=== PATIENT | male | born 1960 | race Caucasian/White ===

== ENCOUNTER 2023-08-15 14:55 | Emergency (ER) | payer OTHER, SELFPAY ==
--- NOTE | ~2023-08-15 | CT_ITS ---
EXAMINATION: CT abdomen pelvis w con DATE: 08/15/2023 16:39 INDICATION: Hemoptysis for 3 days TECHNIQUE: Computed tomography (CT) of the abdomen and pelvis was performed with 100 cc Omnipaque 350 intravenous contrast. The dose-length product was 817.96 mGy-cm. Automated exposure control and iter ative reconstruction technique were employed. COMPARISON: None. FINDINGS: Small hiatal hernia. There is significant thickening of the distal esophagus, consistent wi th esophagitis. Small amount of periesophageal fluid, possibly inflammatory. Fatty infiltration of the liver. There are gallstones. The spleen, pancreas, left adrenal gland and l eft kidney are unremarkable. There is 2 mm nonobstructing right renal stone. Small low-density lesion in the right kidney, too small to characterize, although likely benign. Bladder is unremarkable. No abnormal pelvic masses or fluid collections. Nonobstructive bowel gas pattern. Colonic diverticulosis without evidence for diverticulitis. 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 Severe lumbar spondylosis. IMPRESSION: 1. Severe abnormal mural thickening of the distal esophagus, consistent with esophagitis. Small volum e of periesophageal fluid near the GE junction, possibly inflammatory. Recommend GI consultation. 2: Cholelithiasis. 3: Nonobstructing right nephrolithiasis. Reviewed, dictated and finalized at location B. IMPRESSION: 1. Severe abnormal mural thickening of the distal esophagus, consistent with es ophagitis. Small volume of periesophageal fluid near the GE junction, possibly inflammatory. Recommend GI consultation. 2: Cholelithiasis. 3: Nonobstructing right nephrolithiasis.
[2023-08-15 14:55] VITALS: BP 172/94; PULSE 92; RESP 16; TEMP 37.1; O2SAT 97
[2023-08-15] MEDS: ONDANSETRON INJ 4 MG/2 ML VIAL IV PUSH (15:27)
[2023-08-15] MEDS: SODIUM CHLORIDE 0.9% IV 1,000 ML 999 ML IV CONT (15:27)
[2023-08-15] MEDS: PANTOPRAZOLE SODIUM IV 40 MG VIAL 80 MG IV PUSH (15:28)
[2023-08-15 15:53] LABS: Basophils Absolute Auto 0.02 K/mm3 (0.00-0.10); Basophils Percent Auto 0.1 % (0.0-1.0); Eosinophils Absolute Auto 0.01 K/mm3 (0.02-0.50); Eosinophils Percent Auto 0.1 % (1.0-6.0); Hematocrit 43.1 % (40.0-54.0); Hemoglobin 13.8 g/dL (14.0-18.0); Immature Granulocyte Absolute 0.09 K/mm3 (0.00-0.00); Immature Granulocyte Percent A 0.5 % (0.0-0.0); Lymphocytes Absolute Auto 1.13 K/mm3 (1.10-4.50); Lymphocytes Percent Auto 6.7 % (18.0-42.0); Mean Corpuscular Hemoglobin 28.9 pg (27.0-31.0); Mean Corpuscular Volume 90.2 fL (78.0-102.0); Mean Platelet Volume 9.7 fl (8.7-11.0); Monocytes Absolute Auto 1.36 K/mm3 (0.10-0.90); Monocytes Percent Auto 8.1 % (2.0-11.0); Neutrophils Absolute Auto 14.24 K/mm3 (1.70-7.20); Neutrophils Percent Auto 84.5 % (50.0-70.0); Platelet Count Result 377 K/mm3 (150-420); Red Blood Count 4.78 M/mm3 (4.70-6.10); Red Cell Distribution Width 12.5 % (11.6-14.4); White Blood Count 16.9 K/mm3 (4.8-10.8)
[2023-08-15 16:05] LABS: Alanine Aminotransferase 30 U/L (16-63); Albumin Level 3.7 g/dL (3.4-5.0); Alkaline Phosphatase 75 U/L (46-116); Ammonia 42 umol/L (11-32); Anion Gap 10 mmol/L (4-12); Aspartate Amino Transferase 11 U/L (15-37); Bilirubin,Total 0.5 mg/dL (0.00-1.00); Blood Urea Nitrogen 29 mg/dL (7-18); Calcium 8.8 mg/dL (8.5-10.1); Carbon Dioxide 30 mmol/L (21-32); Chloride 102 mmol/L (98-108); Estimated CRCL calculation 86 ml/min; Estimated Glomerular Filt Rate > 60; Glucose 135 mg/dL (70-99); Lipase 17 U/L (16-77); Magnesium 1.9 mg/dL (1.8-2.4); Osmolality Calculated 301 mOsm/kg (285-295); Partial Thromboplastin Time 23.9 Sec (23.9-30.70); Potassium 3.6 mmol/L (3.5-5.1); Prothrombin Time 10.6 Seconds (9.50-12.1); Sodium 142 mmol/L (136-145); Total Protein 7.6 g/dL (6.4-8.2)
[2023-08-15 16:11] LABS: Lactic Acid Reflex 1.2 mmol/L (0.4-2.0)
[2023-08-15 16:16] LABS: CRP 0.5 mg/dL (0.0-0.9)
[2023-08-15 16:25] VITALS: BP 159/87; PULSE 88; RESP 20; O2SAT 98
[2023-08-15 16:49] LABS: Gastric Negative Control Negative; Gastric Positive Control Positive; Occult Blood Gastric Fluid Positive; pH Gastric Fluid 6 (1-8)
--- NOTE | 2023-08-15 17:13 | ED.GENADULT ---
HPI - General Adult General Chief complaint: Nausea/Vomiting/Diarrhea Stated complaint: nausea, vomiting Time Seen by Provider: 08/15/23 15:03 Source: patient and family Mode of arrival: ambulatory Limitations: no limitations History of Present Illness HPI narrative: this is a 63-year-old male that presents with some epigastric burning and epigastric tenderness and had an episode of emesis with with mild brown vomitus currently has resolved patient with some no diarrhea or constipation, no chest pain no shortness of breath no dysuria. Onset (ago): hour(s) Severity: mild Quality: burning Pain Consistency: now resolved Related Data Allergies Allergy/AdvReac Type Severity Reaction Status Date / Time No Known Allergies Allergy Verified 08/15/23 15:07 Review of Systems Review of Systems: All systems reviewed & are unremarkable except as noted in HPI and below PMFSH Past Medical History Medical History Patient denies medical problems Exam Const: General: healthy appearing Nutritional Appearance: well nourished Orientation/consciousness: patient oriented x3 Limitations: no limitations HENMT: Head: normal to inspection Eyes: Conjunctivae: conjunctivae normal Chest: Chest palpation & inspection: normal inspection of the chest Resp: Effort & Inspection: normal respiratory effort Auscultation: clear to auscultation bilaterally Cardio: Rate: regular rate Rhythm: regular rhythm GI: GI Palp: Yes Soft to palpation and Yes Tenderness to palpation present (GI) ( epigastric tenderness) : General: Yes bladder normal to palpation Back/Spine/Pelvis: Back: no CVA tenderness Skin: General skin exam: normal color Rashes: no rashes Wounds: no wounds Course Course Emergency Course: patient had an episode of small emesis was gastroccult was positive currently no overt vomiting with no overt GI bleeding. Patient received IV Protonix and IV Zofran, labs stable H&H is within normal range. CT scan obtained and reviewed shows that there is esophagitis and needs a GI consultation. Vitals are stable patient states that he feels much better and advised to follow-up with his primary. Vital Signs Vital signs: Vital Signs Temperature 37.1 C 08/15/23 14:55 Pulse Rate 92 08/15/23 14:55 Respiratory Rate 16 08/15/23 14:55 Blood Pressure 172/94 H 08/15/23 14:55 Pulse Oximetry 97 08/15/23 14:55 Oxygen Delivery Room Air 08/15/23 14:55 Temperature 37.1 C 08/15/23 14:55 Pulse Rate 88 08/15/23 16:25 Respiratory Rate 20 08/15/23 16:25 Blood Pressure 159/87 H 08/15/23 16:25 Pulse Oximetry 98 08/15/23 16:25 Oxygen Delivery Room Air 08/15/23 16:25 Medical Decision Making Vital Signs Vital Signs: Vital Signs Temperature 37.1 C 08/15/23 14:55 Pulse Rate 92 08/15/23 14:55 Respiratory Rate 16 08/15/23 14:55 Blood Pressure 172/94 H 08/15/23 14:55 Pulse Oximetry 97 08/15/23 14:55 Oxygen Delivery Room Air 08/15/23 14:55 Temperature 37.1 C 08/15/23 14:55 Pulse Rate 88 08/15/23 16:25 Respiratory Rate 20 08/15/23 16:25 Blood Pressure 159/87 H 08/15/23 16:25 Pulse Oximetry 98 08/15/23 16:25 Oxygen Delivery Room Air 08/15/23 16:25 Lab Data 08/15/23 15:30 08/15/23 15:30 Labs: Lab Results 08/15/23 08/15/23 Range/Units 15:30 16:36 WBC 16.9 H (4.8-10.8) K/mm3 RBC 4.78 (4.70-6.10) M/mm3 Hgb 13.8 L (14.0-18.0) g/dL Hct 43.1 (40.0-54.0) % MCV 90.2 (78.0-102.0) fL MCH 28.9 (27.0-31.0) pg MCHC 32.0 (32-36) g/dL RDW 12.5 (11.6-14.4) % Plt Count 377 (150-420) K/mm3 MPV 9.7 (8.7-11.0) fl Immature Gran % (Auto) 0.5 H (0.0-0.0) % Neut % (Auto) 84.5 H (50.0-70.0) % Lymph % (Auto) 6.7 L (18.0-42.0) % [place] % (Auto) 8.1 (2.0-11.0) % Eos % (Auto) 0.1 L (1.0-6.0) % Baso % (Auto) 0.1 (0.0-1.0) % Lymph
[2023-08-15 17:31] VITALS: BP 145/84; PULSE 85; RESP 20; TEMP 36.6; O2SAT 98
== END 2023-08-15 17:31 | disposition home or self-care (01) ==
PROVIDERS: Emergency Provider Emergency Medicine
DX: K20.90 Esophagitis, unspecified without bleeding (principal)
CPT/HCPCS: 36415; 74177; 80053; 82140; 82271; 83605; 83690; 83735; 83986; 85025; 85610; 85730; 86140; 96361; 96374; 96375; 99284; C9113; J2405; J7030; Q9967

== ENCOUNTER 2024-02-15 20:01 | Emergency (ER) | payer OTHER, SELFPAY ==
[2024-02-15] VITALS (21 sets, daily range): BP systolic 121–152; BP diastolic 58–88; PULSE 93–123; RESP 13–38; TEMP 36.6; O2SAT 80–97
--- NOTE | ~2024-02-15 | CT_ITS ---
EXAMINATION: CT chest abdomen pelvis w con DATE: 02/15/2024 21:42 INDICATION: Upper abdominal pain. Anterior chest pain. TECHNIQUE: Computed tomography (CT) of the chest, abdomen, and pelvis was performed with 100 mL Omnip aque 350 intravenous contrast. Automated exposure control and iterative reconstruction technique were employed. The dose-length product was 890.79 mGy-cm. COMPARISON: CT abdomen and pelvis 08/15/2023 FINDINGS: CHEST CT: There are small pleural effusions. There are airspace opacities in right lower lobe. The heart size i s normal. No pericardial effusion. There is pneumomediastinum extending into the neck. There is wall thickening of the esophagus, consistent with esophagitis. There is tear of the distal esophagus. Ther e is a small volume of fluid in the mediastinum. There is severe thoracic spondylosis. ABDOMEN/PELVIS CT: The liver and spleen are normal. There are gallstones in the gallbladder, which is normal in size. Th e pancreas and left adrenal gland are normal. There is a 2.1 cm mass in right adrenal gland measuring low attenuation, consistent with an adenoma. There is a 5 mm cyst in right kidney. Left kidney is no rmal. There is a left inguinal hernia containing fat. There is diverticulosis of the colon without ev idence of diverticulitis. There are no dilated loops of bowel. The appendix is normal. There is calci fied atherosclerosis of the aorta and many of the other arteries. There are no pathologically enlarge d lymph nodes. There is no free intraperitoneal fluid. There is severe lumbar spondylosis. IMPRESSION: 1. Esophagitis with tear of the distal esophagus with pneumomediastinum and small volume of free medi astinal fluid. 2. Small loculated right pleural effusion. Small left pleural effusion. Reviewed, dictated and finalized at location A. IMPRESSION: 1. Esophagitis with tear of the distal esophagus with pneumomediastinum and sma ll volume of free mediastinal fluid. 2. Small loculated right pleural effusion. Small left pleural effusion.
--- NOTE | 2024-02-15 20:06 | ECG_ITS ---
Test Date: 2024-02-15 20:14:22 Measurements Intervals [place] Rate: 98 P: 53 HI: 152 QRS: -16 QRSD: 111 T: 57 QT: 354 QTc: 453 Interpretive Statements SINUS RHYTHM MODERATE INTRAVENTRICULAR CONDUCTION DELAY [110+ ms QRS DURATION] NONSPECIFIC ST ABNORMALITY ABNORMAL ECG No previous ECG available for comparison Electronically Signed On 02-16-2024 13:15:00 CDT by Oli Dickens M.D.
[2024-02-15] MEDS: MORPHINE SULFATE (*CRX) 4 MG/ML INJ IV PUSH (20:30)
[2024-02-15] MEDS: ONDANSETRON INJ 4 MG/2 ML VIAL IV PUSH (20:31)
[2024-02-15 20:32] LABS: Basophils Absolute Auto 0.04 K/mm3 (0.00-0.10); Basophils Percent Auto 0.3 % (0.0-1.0); Eosinophils Absolute Auto 0.02 K/mm3 (0.02-0.50); Eosinophils Percent Auto 0.1 % (1.0-6.0); Hematocrit 48.9 % (40.0-54.0); Hemoglobin 16.2 g/dL (14.0-18.0); Immature Granulocyte Absolute 0.09 K/mm3 (0.00-0.00); Immature Granulocyte Percent A 0.6 % (0.0-0.0); Lymphocytes Absolute Auto 1.72 K/mm3 (1.10-4.50); Lymphocytes Percent Auto 11.8 % (18.0-42.0); Mean Corpuscular HGB Conc 33.1 g/dL (32-36); Mean Corpuscular Volume 87.6 fL (78.0-102.0); Mean Platelet Volume 10.1 fl (8.7-11.0); Monocytes Absolute Auto 1.18 K/mm3 (0.10-0.90); Monocytes Percent Auto 8.1 % (2.0-11.0); Neutrophils Absolute Auto 11.48 K/mm3 (1.70-7.20); Neutrophils Percent Auto 79.1 % (50.0-70.0); Platelet Count Result 421 K/mm3 (150-420); Red Blood Count 5.58 M/mm3 (4.70-6.10); White Blood Count 14.5 K/mm3 (4.8-10.8)
[2024-02-15] MEDS: SODIUM CHLORIDE 0.9% IV 1,000 ML 999 ML IV CONT (20:32)
[2024-02-15] MEDS: PANTOPRAZOLE SODIUM IV 40 MG VIAL IV PUSH (20:36)
[2024-02-15 20:46] LABS: Alanine Aminotransferase 16 U/L (16-63); Albumin Level 3.9 g/dL (3.4-5.0); Alkaline Phosphatase 101 U/L (46-116); Anion Gap 12 mmol/L (4-12); Aspartate Amino Transferase < 10 U/L (15-37); Bilirubin,Total 0.7 mg/dL (0.00-1.00); Blood Urea Nitrogen 16 mg/dL (7-18); Calcium 9.3 mg/dL (8.5-10.1); Carbon Dioxide 27 mmol/L (21-32); Chloride 102 mmol/L (98-108); Estimated Glomerular Filt Rate > 60; Glucose 146 mg/dL (70-99); Lactic Acid Reflex 1.9 mmol/L (0.4-2.0); Lipase 14 U/L (16-77); Osmolality Calculated 296 mOsm/kg (285-295); Potassium 4.1 mmol/L (3.5-5.1); Sodium 141 mmol/L (136-145); Total Protein 8.2 g/dL (6.4-8.2); Troponin I 5.9 ng/L (0.00-60.4)
[2024-02-15] MEDS: HYDROmorphone HCL INJ (*CRX) 2 MG/ML VIAL 1 MG IV PUSH ×2 (21:15→22:42)
[2024-02-15 21:16] LABS: Partial Thromboplastin Time 25.3 Sec (23.9-30.70); Prothrombin Time 10.8 Seconds (9.50-12.1)
--- NOTE | 2024-02-15 21:59 | ED.ABDPAIN ---
HPI - Abdominal Pain General Chief Complaint: Abdominal Pain Stated Complaint: abd pain Time Seen by Provider: 02/15/24 20:03 Source: patient and family Limitations: no limitations History of Present Illness HPI narrative: This is a 63-year-old male with a history of esophagitis, has been having epigastric abdominal discomfort the last 3 days intensified over the last few hours with no nausea vomiting no fever chills no chest pain or pressure no shortness of breath no diarrhea constipation. MD elicited complaint: abdominal pain Onset (ago): hour(s) Pain Consistency: constant Location: epigastric Severity: severe Pain scale (0-10): 10 Quality: burning Related Data Home Medications Medication Instructions Recorded Confirmed Zantac 1 tablet PO DAILY PRN Acid Reflux 02/15/24 02/15/24 Allergies Allergy/AdvReac Type Severity Reaction Status Date / Time No Known Allergies Allergy Verified 02/15/24 22:52 Review of Systems Review of Systems: All systems reviewed & are unremarkable except as noted in HPI and below PMFSH Past Medical History Medical History Esophagitis Smoking history Surgical History Surgical History Hx of inguinal hernia surgery as an adolescent per pt, R inguinal - no complications since Family History Family History Mother Diabetes mellitus Father Black lung disease Emphysema lung Sibling Metastatic cancer Social History Social History Smoking packs per day: 0.5 Smoking cigarettes per day: 10.0 Years smoked: 47 Smoking pack-years: 23.50 Smoking status: Current every day smoker Tobacco type: cigarettes Alcohol intake: never Substance use: never Exam Const: General: no acute distress Nutritional Appearance: well nourished Orientation/consciousness: patient oriented x3 Limitations: no limitations HENMT: Head: normal to inspection Eyes: Conjunctivae: conjunctivae normal Neck: Neck: normal visual inspection, no lymphadenopathy and no meningeal signs Chest: Chest palpation & inspection: normal inspection of the chest Resp: Effort & Inspection: normal respiratory effort Auscultation: clear to auscultation bilaterally Cardio: Rate: regular rate Rhythm: regular rhythm GI: GI Palp: Yes Soft to palpation and Yes Tenderness to palpation present (GI) Auscultation: normal bowel sounds : General: Yes bladder normal to palpation Skin: General skin exam: normal color Rashes: no rashes Wounds: no wounds Neuro: General: patient oriented x3 and moves all extremities Extrem: General: normal to inspection Course Course Emergency Course: Patient with abdominal pain received IV Protonix as well as morphine for pain control and a dose of 1mg Dilaudid. Patient had blood work which was unremarkable lipase is 14 troponin is within normal range. Patient had an EKG which shows normal sinus rhythm. Vital Signs Vital signs: Vital Signs Temperature 36.6 C 02/15/24 20:01 Pulse Rate 93 02/15/24 20:01 Respiratory Rate 20 02/15/24 20:01 Blood Pressure 144/71 H 02/15/24 20:01 Pulse Oximetry 97 02/15/24 20:01 Oxygen Delivery Room Air 02/15/24 20:01 Temperature 36.6 C 02/15/24 20:01 Pulse Rate 105 H 02/16/24 00:20 Respiratory Rate 14 02/16/24 00:20 Blood Pressure 124/83 02/16/24 00:20 Pulse Oximetry 92 02/16/24 00:20 Oxygen Delivery Nasal Cannula 02/16/24 00:20 Oxygen Flow Rate 4 02/16/24 00:20 MDM - Abdominal Pain Lab Data 02/15/24 20:06 02/15/24 20:06 Labs: Lab Results 02/15/24 02/15/24 Range/Units 20:06 21:05 WBC 14.5 H (4.8-10.8) K/mm3 RBC 5.58 (4.70-6.10) M/mm3 Hgb 16.2 (14.0-18.0) g/dL Hct 48.9 (40.0-54.0) % MCV 87.6 (78.0-102.0) fL MCH 29.0 (27.0-31.0) pg MCHC 33.1 (32-36) g/dL RDW 13.0 (11.6-14.4) % Plt Count 421 H (150-420) K/mm3 MPV 10.1 (8.7-11.0) fl Immature Gran % (Auto) 0.6 H (0.0-0.0) % Neut % (Auto) 79.1 H (50.0-70.0) % Lymph % (Auto) 11.8 L (18.0-42.0) % [place] % (Auto) 8.1 (2.0-11.0) % Eos % (Auto) 0.1 L (1.0-6.0) % Baso % (Auto) 0.3 (0.0-1.0) % Lymph # (Auto) 1.72 (1.10-4.50) K/mm3 [place] # (Auto) 1.18 H (0.10-0.90) K/mm3 Eos # (Auto) 0.02 (0.02-0.50) K/mm3 Baso # (Auto) 0.04 (0.00-0.10) K/mm3 Abs Immat Gran (auto) 0.09 H (0.00-0.00) K/mm3 Absolute Neuts (auto) 11.48 H (1.70-7.20) K/mm3 Absolute Nucleated RBC 0.00 (0.00-0.00) K/mm3 Nucleated RBC % 0.0 (0-0.0) % PT 10.8 (9.50-12.1) Seconds INR 1.0 APTT 25.3 (23.9-30.70) Sec Sodium 141 (136-145) mmol/L Potassium 4.1 (3.5-5.1) mmol/L Chloride 102 (98-108) mmol/L Carbon Dioxide 27 (21-32) mmol/L Anion Gap 12 (4-12) mmol/L BUN 16 (7-18) mg/dL Creatinine 0.96 (0.70-1.30) mg/dL Estim Creat Clear Calc Not Reportable Estimated GFR > 60 (59 - ) Glucose 146 H (70-99) mg/dL Calculated Osmolality 296 H (285-295) mOsm/kg Lactic Acid 1.9 (0.4-2.0) mmol/L Calcium 9.3 (8.5-10.1) mg/dL Total Bilirubin 0.7 (0.00-1.00) mg/dL AST < 10 L (15-37) U/L ALT 16 (16-63) U/L Alkaline Phosphatase 101 (46-116) U/L Troponin I 5.9 (0.00-60.4) ng/L Total Protein 8.2 (6.4-8.2) g/dL Albumin 3.9 (3.4-5.0) g/dL Lipase 14 L (16-77) U/L Urine Color Yellow (Yellow) Urine Appearance Clear (Clear) Urine pH 5.0 (5.0-8.0) Ur Specific [place] 1.010 (1.010-1.020) Urine Protein 1+ H (Negative) Urine Glucose (UA) Negative (Negative) Urine Ketones Negative (Negative) Ur Blood (Man) Negative (Negative) Urine Nitrate Negative (Negative) Urine Bilirubin Negative (Negative) Urine Urobilinogen 0.2 (0.2-1.0) mg/dL Leukocyte Esterase Rfl Negative (Negative) ANAHY/UL Urine Mucus Few H /lpf Imaging Data Radiologist's impression: ITS Impressions Chest/Abdomen/Pelvis CT 02/15/24 21:59 IMPRESSION: 1. Esophagitis with tear of the distal esophagus with pneumomediastinum and small volume of free mediastinal fluid. 2. Small loculated right pleural effusion. Small left pleural effusion. Discharge Plan Discharge Clinical Impression: Esophageal tear, Pneumomediastinum Patient Disposition: Acute Care Hospital Condition: Stable Prescriptions: No Action Zantac 1 tablet PO DAILY PRN (Reason: Acid Reflux) Follow-up/Referrals: UNKNOWN,DOCTOR [Primary Care Provider] - Time of Disposition: 23:53
--- NOTE | 2024-02-15 22:36 | PC.NURSE ---
Spoke with BECCA Mcfadden with [facility]. They are sending this patients case to the CT surgeon and running the case by the coal hauler there, they are not entirely comfortable sending this patient to a tele floor. CT surgery will be returning call to Dr Her as he is also aware of the situation.
[2024-02-15 23:05] LABS: Add Urine Microscopic? YES; Appearance Urine Clear (Clear); Bilirubin Urine Negative (Negative); Blood Urine Negative (Negative); Color Urine Yellow (Yellow); Glucose Urine UA Negative (Negative); Ketones Urine Negative (Negative); Leukocyte Esterase Ur Negative LEU/UL (Negative); Nitrate Urine Negative (Negative); Protein Urine 1+ (Negative); Urobilinogen Urine 0.2 mg/dL (0.2-1.0)
[2024-02-15 23:10] LABS: Mucus Urine Few /lpf
[2024-02-16] VITALS: BP 139/83; PULSE 120; RESP 20; O2SAT 92
[2024-02-16 00:01] VITALS: PULSE 101; O2SAT 93
[2024-02-16 00:15] VITALS: BP 124/83; PULSE 117; RESP 27
[2024-02-16] MEDS: HYDROmorphone HCL INJ (*CRX) 2 MG/ML VIAL 1 MG IV PUSH (00:15)
[2024-02-16 00:16] VITALS: PULSE 105; RESP 14; O2SAT 92
[2024-02-16 00:20] VITALS: BP 124/83; PULSE 105; RESP 14; O2SAT 92
--- NOTE | 2024-02-17 12:25 | PC.NURSE ---
preliminary blood culture results x2: no growth to date
== END 2024-02-16 00:20 | disposition short-term general hospital (02) ==
PROVIDERS: Emergency Provider Emergency Medicine
DX: S27.813A Laceration of esophagus (thoracic part), initial encounter (principal); J98.2 Interstitial emphysema; F17.210 Nicotine dependence, cigarettes, uncomplicated; X58.XXXA Exposure to other specified factors, initial encounter
CPT/HCPCS: 36415; 71260; 74177; 80053; 81001; 83605; 83690; 84484; 85025; 85610; 85730; 87040; 93005; 96361; 96374; 96375; 96376; 99285; J1171; J2270; J2405; J2470; J7030; Q9967

== ENCOUNTER 2024-05-08 08:56 | Emergency (ER) | payer OTHER, SELFPAY ==
[2024-05-08 09:01] VITALS: BP 159/81; PULSE 84; RESP 18; TEMP 36.5; O2SAT 100
--- NOTE | 2024-05-08 09:17 | ED_ITS ---
HPI - Abdominal Pain General Chief Complaint: Abdominal Pain Stated Complaint: abd tight Time Seen by Provider: 05/08/24 09:17 Source: patient Mode of arrival: ambulatory Limitations: no limitations History of Present Illness HPI narrative: Patient is 63 years old white male came to the ED from home with a friend by private car complaining of feeling woozy and discomfort hole over his abdomen started yesterday. Constant, patient unable to eat or drink. History of esophagectomy, patient have a drain back in the chest and to tubes coming out of the abdominal wall. He denies any fever or chills or vomiting. The patient and his friend thought we do have drier and evaporator operator in house. After the found out that we do not, they decided to go to [facility] where he had surgery 3 months ago. Patient declined any blood workup or imaging right now and he prefers to go to [facility] To see his drier and evaporator operator right away. Related Data Home Medications ?Medication ?Instructions ?Recorded ?Confirmed ?Last Taken ?Type Zantac 1 tablet PO DAILY PRN Acid Reflux 02/15/24 02/15/24 Unknown History lansoprazole 30 mg delayed mg 05/08/24 Unknown History release,disintegrating tablet olanzapine 20 mg tablet mg 05/08/24 Unknown History oxycodone 5 mg tablet mg 05/08/24 Unknown History Allergies Allergy/AdvReac Type Severity Reaction Status Date / Time No Known Allergies Allergy Verified 05/08/24 09:12 Review of Systems Review of Systems: All systems reviewed & are unremarkable except as noted in HPI and below PMFSH Past Medical History Medical History Smoking history Esophagitis Surgical History Surgical History Hx of inguinal hernia surgery as an adolescent per pt, R inguinal - no complications since Family History Family History Mother Diabetes mellitus Father Black lung disease Emphysema lung Sibling Metastatic cancer Social History Social History Smoking packs per day: 0.5 Smoking cigarettes per day: 10.0 Years smoked: 47 Smoking pack-years: 23.50 Smoking status: Current every day smoker Tobacco type: cigarettes Alcohol intake: never Substance use: never Exam Narrative: General appearance: Well-developed, well-nourished Skin: Normal color Head: Normocephalic, nontraumatic Eyes: Clear conjunctiva ENT: Oropharynx normal, ears normal, nose normal Neck: Supple, nontender Chest and respiratory: Airway patent, no respiratory distress, no accessory muscle use, draining opaque bag attached to the chest anteriorly Heart: Regular rate/rhythm Abdomen: Soft, slight diffuse tenderness, no organomegaly, quiet bowel sounds, feeding tube in place, another tube inserted immediately above the feeding tube,draining brownish possibly bloody material of unknown source Vascular: Normal peripheral pulses, normal capillary refill. Musculoskeletal: Normal range of motion, nontender back Neurologic: Alert and oriented ?3, CLAIM EXAMINER is normal as tested, no gross motor deficit Course Vital Signs Vital signs: Vital Signs Temperature 36.5 C 05/08/24 09:01 Pulse Rate 84 05/08/24 09:01 Respiratory Rate 18 05/08/24 09:01 Blood Pressure 159/81 H 05/08/24 09:01 Pulse Oximetry 100 05/08/24 09:01 Oxygen Delivery Room Air 05/08/24 09:01 Temperature 36.5 C 05/08/24 09:01 Pulse Rate 84 05/08/24 09:01 Respiratory Rate 18 05/08/24 09:01 Blood Pressure 159/81 H 05/08/24 09:01 Pulse Oximetry 100 05/08/24 09:01 Oxygen Delivery Room Air 05/08/24 09:01 MDM - Abdominal Pain MDM Narrative Medical decision making narrative: patient is status post esophageal removal February 2024, complaining of stomach and diffuse abdominal pain. Patient was wondering if we do have drier and evaporator operator in house or not, then he decided to leave to go to [facility] to see his drier and evaporator operator over there. Patient declined any labs or imaging to be done at this time. Differential Diagnosis Differential diagnosis: Likely other ( Post esophagectomy complication including hemorrhage, obstruction, dehydration, electrolyte imbalance) Critical Care Time Critical Care Time Critical Care Time: No Discharge Plan Discharge Clinical Impression: Abdominal pain Patient Disposition: Left Against Medical Advice Condition: Guarded Prognosis Patient Language: Armenian Prescriptions: No Action olanzapine 20 mg tablet oxycodone 5 mg tablet lansoprazole 30 mg tablet,disintegrat, delay rel Zantac 1 tablet PO DAILY PRN (Reason: Acid Reflux) Follow-up/Referrals: Debbie,MD Leobardo [Primary Care Provider] -
== END 2024-05-08 09:30 | disposition left against medical advice (07) ==
PROVIDERS: Emergency Provider Emergency Medicine; PCP Family Medicine
DX: R10.9 Unspecified abdominal pain (principal); F17.210 Nicotine dependence, cigarettes, uncomplicated; Z79.891 Long term (current) use of opiate analgesic
CPT/HCPCS: 99281